=== PATIENT | female | born 1970 | race Caucasian/White ===

== ENCOUNTER 2025-04-27 11:52 | Emergency (ER) | payer SELFPAY ==
[2025-04-27 11:52] VITALS: BP 118/84; PULSE 82; RESP 18; TEMP 36.8; O2SAT 94; BMI 44.4
--- NOTE | 2025-04-27 11:59 | ECG_ITS ---
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
--- NOTE | 2025-04-27 12:24 | XR_ITS ---
WS: [id number] XR chest 1V portable [id number] REASON FOR EXAM: chest pain FINDINGS: The heart and mediastinum are within normal limits. Calcified granulomatous disease bilaterally. No acute pulmonary parenchymal or pleural abnormality. Minimal degenerative spondylosis in the thoracic spine. XR/XR chest 1V portable [id number] IMPRESSION: No acute abnormality.
[2025-04-27] MEDS: sodium chloride 0.9% 1,000 ML 999 ML IV (12:38)
[2025-04-27 12:55] LABS: Bilirubin Urine Negative (Negative); Blood Urine 3+ (Negative); Glucose Urine UA Negative (Normal); Ketones Urine Negative (Negative); Leukocyte Esterase Urine Negative (Negative); Nitrate Urine Negative (Negative); Protein Urine Negative (Negative); Specific Gravity, Urine 1.013 (1.005-1.030); Urine Appearance Cloudy (CLEAR); Urine Color Yellow (Yellow); pH Urine 6.5 (5-7)
[2025-04-27 12:57] LABS: Basophils % 0.1 %; Eosinophils # 0.1 10^3/uL (0.0-0.8); Eosinophils % 1.6 %; Hematocrit 40.5 % (36-47); Lymphocytes # 1.4 10^3/uL (0.8-4.8); Lymphocytes % 20.5 %; Mean Corpuscular HGB Conc 32.1 g/dL (30-55); Mean Corpuscular Hemoglobin 25.4 pg (27-33); Mean Corpuscular Volume 79.1 fl (85-98); Mean Platelet Volume 10.4 fL (7.4-10.4); Monocytes # 0.5 10^3/uL (0.2-0.9); Monocytes % 6.4 %; Neutrophils # 4.98 10^3/uL (1.8-7.7); Neutrophils % 71.1 %; Nucleated Red Blood Cells % 0 %; Platelet Count 292 10^3/cmm (157-399); Red Blood Count 5.12 10^6/uL (3.85-5.65); Red Cell Distribution Width 14.6 % (12.1-15.1); White Blood Count 7.01 10^3/uL (3.29-11.43)
[2025-04-27 13:00] LABS: Add Urine Microscopic? YES; Bacteria Urine 3+ /hpf; RBC Urine 51-100 /hpf (0-2); Squamous Epithelial Cell Urine 21-50 /hpf (0-5); WBC Urine 0-5 /hpf (0-5)
[2025-04-27 13:03] VITALS: BP 125/68; PULSE 76; O2SAT 97
[2025-04-27 13:16] LABS: Troponin(5th) Baseline < 6 ng/L (0-10)
[2025-04-27 13:45] LABS: Alanine Aminotransferase 18 U/L (0-33); Alkaline Phosphatase 70 U/L (35-105); Aspartate Amino Transferase 20 U/L (0-32); Blood Urea Nitrogen 11 mg/dL (6-20); Carbon Dioxide 23 mmol/L (22-29); Chloride 105 mmol/L (98-107); Creatinine Clr Calc Pharmacy 105.8444; Globulin 2.3 g/dL (1.3-4.6); Glomerular Filtration Rate 87.9 mL/min (90-130); Glucose 96 mg/dL (65-115); Lipase 29 U/L (13-60); NT Pro B Type Natriuretic Pept < 36 pg/mL (0-125); Osmolality Calculated 291 mOsm/kg (285-295); Sodium 141 mmol/L (136-145); Total Bilirubin 0.2 mg/dL (0.15-1.2); Total Protein 6.3 g/dL (6.6-8.7)
[2025-04-27 13:48] LABS: Anion Gap 17.4 (5-19); Potassium 4.4 mmol/L (3.5-5.1)
--- NOTE | 2025-04-27 13:53 | W.ED.CHESTPA ---
HPI - Chest Pain General: Chief Complaint: Chest Pain Stated Complaint: chest pain Time Seen by Provider: 04/27/25 11:56 History of Present Illness: 54-year-old female presents emergency department chief complaint of having chest pain that started while at work just prior to arrival couple hours ago patient does endorse a lot of stress in her life she denies any history of cardiac issues however her father recently of heart related issues. Patient reports pain radiating to her back she reports mild nausea no vomiting reports no abdominal pain patient presents by EMS for further assessment and management patient denies any history of high blood pressure or any cardiac condition. Associated symptoms: Deny abdominal pain, dyspnea, fever(s), nausea, palpitations or vomiting Review of Systems General: Reports: 10 or more systems reviewed and unremarkable except in HPI and below Const: Denies: fever(s), chills, fatigue or malaise Eyes: Denies: change in vision or blurry vision Card: Reports: chest pain; Denies: palpitations Resp: Denies: dyspnea or productive cough GI: Denies: abdominal pain, nausea or vomiting : Denies: flank pain Musc: Denies: extremity pain or extremity swelling Skin/Breast: Denies: rash or pruritus Neuro: Denies: headache(s) Psych: Denies: anxiety or depression [place]/Lymph: Denies: easy bleeding All/Imm: Denies: urticaria, throat swelling or facial swelling Physical Exam Narrative: EXAM NARRATIVE: Patient appears very anxious on exam however appears in no obvious acute distress. Const: COMMON NORMALS: no acute distress, patient oriented x3 and healthy appearing HENMT: COMMON NORMALS: normocephalic and atraumatic HEAD & SCALP: normocephalic and atraumatic Eye: COMMON NORMALS: Equal, round and reactive pupils present and EOMs intact bilaterally PUPIL: Yes Equal, round and reactive pupils present Neck/C-Spine: COMMON NORMALS: full ROM, supple and no JVD Lymph: LYMPHATIC: no lymphadenopathy noted Chest: COMMONS NORMALS: normal inspection of the chest and normal palpation of entire chest wall Resp: COMMON NORMALS: normal respiratory effort, No retractions and clear to auscultation bilaterally EFFORT & INSPECTION: Yes able to speak in complete sentences and Yes symmetric chest movement AUSCULTATION: clear to auscultation bilaterally Cardio: COMMON NORMALS: no JVD, regular rate and regular rhythm RATE: regular rate RHYTHM: regular rhythm GI: COMMON NORMALS: Normal to inspection, nondistended, normoactive bowel sounds present, Soft to palpation and non-tender INSPECTION: Yes normal to inspection PALPATION: Yes Soft to palpation : COMMON NORMALS: Yes no CVA tenderness BLADDER/KIDNEY EXAM: Yes no CVA tenderness Back/Pelvis: COMMON NORMALS: no CVA tenderness Extremity: COMMON NORMALS: normal to inspection and full ROM Neuro: COMMON NORMALS: patient oriented x3, CN's II-XII intact bilaterally, moves all extremities and no focal motor deficits Psych: COMMON NORMALS: mental status grossly normal, Normal thought process present, cooperative and normal affect THOUGHT PROCESS: Normal thought process present Skin: COMMON NORMALS: no rashes or lesions noted GENERAL SKIN EXAM: no rashes or lesions noted Course Vital Signs: Vital signs: Vital Signs Temperature 98.3 F 04/27/25 11:52 Pulse Rate 79 04/27/25 14:32 Respiratory Rate 18 04/27/25 11:52 Blood Pressure 124/78 04/27/25 14:32 Pulse Oximetry 97 04/27/25 14:32 Oxygen Delivery Me thod Room Air 04/27/25 14:32 MDM - Chest Pain Medical Decision Making Due to patient's symptoms and condition IV will be established basic lab work and imaging will be obtained will continue to follow EKG reveals some nonspecific ST changes in aVF with no reciprocal changes. Will continue to follow. Patient's lab work and imaging of all come back reassuring include that to cardiac troponins. Patient is stable for discharge home I did advise the patient further follow-up with primary care for further evaluation management she did report that she is under a lot of stress at home which I suspect may be contributing to her current symptoms patient was advised return the interim if any of her symptoms persist or worsen. Lab Data 04/27/25 12:41 04/27/25 12:41 Radiology Impressions Chest X-Ray 04/27/25 12:24 IMPRESSION: No acute abnormality. Laboratory Results WBC 7.01 10^3/uL (3.29-11.43) 04/27/25 12:41 RBC 5.12 10^6/uL (3.85-5.65) 04/27/25 12:41 Hgb 13.00 g/dL (11.27-16.99) 04/27/25 12:41 Hct 40.5 % (36-47) 04/27/25 12:41 MCV 79.1 fl (85-98) L 04/27/25 12:41 MCH 25.4 pg (27-33) L 04/27/25 12:41 MCHC 32.1 g/dL (30-55) 04/27/25 12:41 RDW 14.6 % (12.1-15.1) 04/27/25 12:41 Plt Count 292 10^3/cmm (157-399) 04/27/25 12:41 MPV 10.4 fL (7.4-10.4) 04/27/25 12:41 Neut % (Auto) 71.1 % 04/27/25 12:41 Lymph % (Auto) 20.5 % 04/27/25 12:41 [place] % (Auto) 6.4 % 04/27/25 12:41 Eos % (Auto) 1.6 % 04/27/25 12:41 Baso % (Auto) 0.1 % 04/27/25 12:41 Neut # (Auto) 4.98 10^3/uL (1.8-7.7) 04/27/25 12:41 Lymph # (Auto) 1.4 10^3/uL (0.8-4.8) 04/27/25 12:41 [place] # (Auto) 0.5 10^3/uL (0.2-0.9) 04/27/25 12:41 Eos # (Auto) 0.1 10^3/uL (0.0-0.8) 04/27/25 12:41 Baso # (Auto) 0.0 10^3/uL (0.0-0.1) 04/27/25 12:41 Nucleated RBC % (auto) 0 % 04/27/25 12:41 Nucleated RBCs # 0.0 /100WBC 04/27/25 12:41 Sodium 141 mmol/L (136-145) 04/27/25 12:41 Potassium 4.4 mmol/L (3.5-5.1) 04/27/25 12:41 Chloride 105 mmol/L (98-107) 04/27/25 12:41 Carbon Dioxide 23 mmol/L (22-29) 04/27/25 12:41 Anion Gap 17.4 (5-19) 04/27/25 12:41 BUN 11 mg/dL (6-20) 04/27/25 12:41 Creatinine 0.7 mg/dL (0.5-0.9) 04/27/25 12:41 GFR Calculation 87.9 mL/min (90-130) L 04/27/25 12:41 Glucose 96 mg/dL (65-115) 04/27/25 12:41 Calculated Osmolality 291 mOsm/kg (285-295) 04/27/25 12:41 Calcium 9.0 mg/dL (8.5-10.5) 04/27/25 12:41 Total Bilirubin 0.2 mg/dL (0.15-1.2) 04/27/25 12:41 AST 20 U/L (0-32) 04/27/25 12:41 ALT 18 U/L (0-33) 04/27/25 12:41 Alkaline Phosphatase 70 U/L (35-105) 04/27/25 12:41 Troponin T Baseline < 6 ng/L (0-10) 04/27/25 12:41 Troponin T 120 Minute 6.12 ng/L (0-10) 04/27/25 14:33 Delta Troponin T 0.74732 ABS# (0-10) 04/27/25 14:33 NT-Pro-B Natriuret Pep < 36 pg/mL (0-125) 04/27/25 12:41 Total Protein 6.3 g/dL (6.6-8.7) L 04/27/25 12:41 Albumin 4.0 g/dL (3.5-5.2) 04/27/25 12:41 Globulin 2.3 g/dL (1.3-4.6) 04/27/25 12:41 Lipase 29 U/L (13-60) 04/27/25 12:41 Urine Color Yellow (Yellow) 04/27/25 12:45 Urine Appearance Cloudy (CLEAR) A 04/27/25 12:45 Urine pH 6.5 (5-7) 04/27/25 12:45 Ur Specific [place] 1.013 (1.005-1.030) 04/27/25 12:45 Urine Protein Negative (Negative) 04/27/25 12:45 Urine Glucose (UA) Negative (Normal) 04/27/25 12:45 Urine Ketones Negative (Negative) 04/27/25 12:45 Urine Blood 3+ (Negative) A 04/27/25 12:45 Urine Nitrate Negative (Negative) 04/27/25 12:45 Urine Bilirubin Negative (Negative) 04/27/25 12:45 Urine Urobilinogen 1.0 mg/dL (Negative) 04/27/25 12:45 Ur Leukocyte Esterase Negative (Negative) 04/27/25 12:45 Urine RBC 51-100 /hpf (0-2) H 04/27/25 12:45 Urine WBC 0-5 /hpf (0-5) 04/27/25 12:45 Ur Squamous Epith Cells 21-50 /hpf (0-5) H 04/27/25 12:45 Amorphous Sediment Not Reportable 04/27/25 12:45 Urine Bacteria 3+ /hpf (NONE) H 04/27/25 12:45 Hyaline Casts 0.40 /lpf 04/27/25 12:45 All radiology interpretation(s) finalized by discharge Discharge Plan Discharge Patient Disposition: Home Clinical Impression: Atypical chest pain Condition: Stable Discharge Orders: Discharge ED (Routine); Ordered 04/27/25 Ordered By: Gael Lechuga Referrals: Elton Robison MD [Primary Care Provider, [facility]] - 4-7 days Discharge Diet: Cardiac Discharge Activity: Increase activity as tolerated Patient Instructions: Chest Pain (ED) Activity Restrictions/Additional Instructions: Your lab work and imaging obtained to the emergency department is all come back inconclusive was contributing to your chest pain no obvious underlying heart condition however was found it is recommended for you to further follow-up with your primary care doctor 2 to 3 days for further investigation management of this especially continues in which to return in the interim if any of your symptoms persist or worsen. Print Language: Sammarinese Coding Level of Care Code ED Process Validation Engineer for Judy Demarco
[2025-04-27 14:32] VITALS: BP 124/78; PULSE 79; O2SAT 97
--- NOTE | 2025-04-27 14:41 | ECG_ITS ---
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
[2025-04-27 15:01] LABS: Troponin 5 2HR 6.12 ng/L (0-10); Troponin 5 2HR Delta 0.12001 ABS# (0-10)
[2025-04-27 15:38] VITALS: BP 117/80; PULSE 73; O2SAT 99
== END 2025-04-27 15:40 | disposition home or self-care (01) ==
PROVIDERS: Emergency Provider Emergency Medicine; PCP Family Medicine
DX: R07.89 Other chest pain (principal)
CPT/HCPCS: 36415; 71045; 80053; 81001; 83690; 83880; 84484; 85025; 93005; 96360; 96361; 99285; J7030